=== PATIENT | male | born 1955 ===

== ENCOUNTER 2016-08-23 20:19 | Emergency (ER) | payer MEDICAID ==
[2016-08-23 20:27] VITALS: BP 151/95; PULSE 120; RESP 16; TEMP 98.5; O2SAT 100
[2016-08-23] MEDS ORDERED: Iohexol 240 (50 ml) PO ONE (20:29)
[2016-08-23] MEDS ORDERED: Iohexol 240 (50 ml) ONE (20:40)
[2016-08-23 21:27] LABS: BASO # 0.1 K/uL (0.0-0.2); BASO % 0.9 % (0.0-2.0); EOS % 0.5 % (0.0-4.0); HEMATOCRIT 42.9 % (35.0-51.0); LYMPH # 1.2 K/uL (1.0-4.3); LYMPH % 17.9 % (20.0-40.0); MEAN CELL VOLUME 91.5 fl (80.0-94.0); MEAN CORPUSCULAR HEMOGLOBIN 30.4 pg (27.0-31.0); MEAN CORPUSCULAR HGB CONC 33.2 g/dL (33.0-37.0); MEAN PLATELET VOLUME 6.4 fl (7.2-11.7); MONO # 0.8 K/uL (0.0-0.8); MONO % 11.8 % (0.0-10.0); NEUT # 4.8 K/uL (1.8-7.0); NEUT % 68.9 % (50.0-75.0); NRBC % 0.1 % (0.0-0.0); WHITE BLOOD COUNT 6.9 K/uL (4.8-10.8)
[2016-08-23 21:54] LABS: ALB/GLOB RATIO 1.4 (1.0-2.1); ALKALINE PHOSPHATASE 77 U/L (38-126); ALT/SGPT 48 U/L (21-72); AST/SGOT 39 U/L (17-59); BILIRUBIN,TOTAL 0.4 mg/dl (0.2-1.3); BLOOD UREA NITROGEN 16 mg/dl (9-20); CALCIUM 9.2 mg/dL (8.4-10.2); CARBON DIOXIDE 24 mmol/L (22-30); CHLORIDE 100 mmol/L (98-107); GFR AFRICAN-AMERICAN > 60; GLUCOSE,RANDOM 109 mg/dL (75-110); SODIUM 135 mmol/l (132-148); TOTAL PROTEIN 7.3 G/DL (6.3-8.2)
--- NOTE | 2016-08-23 22:16 | ED PDOC ---
"HPI: Abdomen Time Seen by Provider: 08/23/16 20:28 Chief Complaint (Nursing): Abdominal Pain Chief Complaint (Provider): Abdominal Pain History Per: Patient History/Exam Limitations: no limitations Onset/Duration Of Symptoms: Days (2x) Current Symptoms Are (Timing): Still Present Severity: Moderate Associated Symptoms: Back Pain (left side), Urinary Symptoms (decreased urine output). denies: Fever, Nausea, Vomiting, Diarrhea Additional Complaint(s): 60 year old male with no pertinent medical history presents to the ED with complaints of abdominal pain that started 2x days ago, accompanied by left sided back pain, and decreased ability to pass urine. She denies having nausea, vomiting, diarrhea, fever, cough, and shortness of breath. PMD: Marco Wing MD Past Medical History Reviewed: Historical Data, Nursing Documentation, Vital Signs Vital Signs: Last Vital Signs Temp 98.5 F 08/23/16 20:23 Pulse 120 H 08/23/16 20:23 Resp 16 08/23/16 20:23 BP 151/95 H 08/23/16 20:23 Pulse Ox 100 08/24/16 05:03 - Medical History PMH: No Chronic Diseases Other PMH: questionable prostate disease - Surgical History Surgical History: No Surg Hx - Family History Family History: States: Unknown Family Hx - Social History Current smoker - smoking cessation education provided: No Alcohol: None Drugs: Denies - Home Medications Home Medications: Ambulatory Orders Medication Instructions Recorded Polyethylene Glycol 3350 [Miralax] 17 g PO QAM PRN #7 pkg 08/24/16 - Allergies Allergies/Adverse Reactions: Allergies Allergy/AdvReac Type Severity Reaction Status Date / Time No Known Allergies Allergy Verified 08/23/16 20:22 Review of Systems ROS Statement: Except As Marked, All Systems Reviewed And Found Negative Constitutional: Negative for: Fever Cardiovascular: Negative for: Chest Pain Respiratory: Negative for: Cough, Shortness of Breath Gastrointestinal: Positive for: Abdominal Pain. Negative for: Nausea, Vomiting , Diarrhea Genitourinary Male: Positive for: Other (decreased ability to pass urine) Musculoskeletal: Positive for: Back Pain (left side) Physical Exam - Reviewed Nursing Documentation Reviewed: Yes Vital Signs Reviewed: Yes - Physical Exam Appears: Positive for: Non-toxic, Uncomfortable Head Exam: Positive for: ATRAUMATIC, NORMOCEPHALIC Skin: Positive for: Normal Color, Warm, Dry Neck: Positive for: Normal Cardiovascular/Chest: Positive for: Tachycardia (regular rhythm) Respiratory: Positive for: Normal Breath Sounds. Negative for: Respiratory Distress Gastrointestinal/Abdominal: Positive for: Tenderness (suprapubic tenderness), Distended Neurologic/Psych: Positive for: Alert, Oriented (3x) - Laboratory Results Result Diagrams: 08/23/16 21:22 08/23/16 21:22 - ECG O2 Sat by Pulse Oximetry: 100 (RA) Pulse Ox Interpretation: Normal Medical Decision Making Medical Decision Makin:28 Initial impression: 60 year old male with urinary symptoms and left flank pain. Initial plan: * CT abd and pelvis PO and IV contrast * CMP * lactic acid, plasma * omnipaque 50ml PO * toradol 10mg IV * blood culture * urine culture * bladder scan PRN * urinalysis * reevaluation 0308: EXAM: CT Abdomen and Pelvis With Intravenous Contrast CLINICAL HISTORY: 60 years old, male; Pain; Abdominal pain; Generalized; Additional info: Abd pain. Unable to urinate. Sent phy. Doc. With request. TECHNIQUE: Axial computed tomography images of the abdomen and pelvis with intravenous contrast. This CT exam was performed using one or more of the following dose reduction techniques : automated exposure control, adjustment of the mA and/or kV according to patient size, and/ or use of iterative reconstruction technique. Coronal and sagittal reformatted images were created and reviewed. CONTRAST: 90 mL of [id number] administered intravenously. COMPARISON: No relevant prior studies available. FINDINGS: Lower thorax: The bilateral lung bases are clear. ABDOMEN: Liver: No acute findings. Gallbladder and bile ducts: The gallbladder is decompressed. No calcified stones. No significant intra- or extrahepatic biliary ductal dilation. Pancreas: Enhances homogeneously. No ductal dilation. No discrete mass. Spleen: No acute findings. Adrenals: No acute findings. Kidneys and ureters: No acute findings. No hydronephrosis or renal calculi. No discrete solid mass. PELVIS: Bladder: The bladder is markedly distended, and demonstrates a thickened wall Reproductive: No acute findings. Appendix: The air filled appendix is of normal caliber (series 3, image 98; series 601, image 58). ABDOMEN and PELVIS: RONI EMMANUEL | Final Radiology Report CONFIDENTIALITY STATEMENT This report is intended only for use by the referring physician, and only in accordance with law. If you received this in error, call [phone]. Page 2 of 2 Stomach and bowel: Oral contrast extends to the level of the cecum and ascending colon without evidence of obstruction. No mucosal thickening. Extensive retained fecal enteric contents within the left mid to lower abdomen. Peritoneum: No significant fluid collection. No free air. Lymph nodes: No pathologically enlarged lymph nodes. Vasculature: Calcified atherosclerotic disease. Bones: S-shaped curvature of the thoracolumbar spine. IMPRESSION: Marked distention of the bladder, with mural thickening. Extensive retained fecal enteric contents within the left mid to lower abdomen. Labs showed no clinical significant abnormalities. Patient reports he is voiding normally now and is stable on dischage DX . Constipation, and acute urine syndrome. Scribe Attestation: Documented by Helena Goldman, acting as a scribe for Quique Knapp MD. Provider Scribe Attestation: All medical record entries made by the Scribe were at my direction and personally dictated by me. I have reviewed the chart and agree that the record accurately reflects my personal performance of the history, physical exam, medical decision making, and the department course for this patient. I have also personally directed, reviewed, and agree with the discharge instructions and disposition. Disposition - Clinical Impression Clinical Impression: Constipation, Urinary retention - Disposition Referrals: Dionisio Wade MD [Medical Doctor] - Marco Wing [Family Provider] - Disposition: Routine/Home Disposition Time: 03:00 Condition: IMPROVED Prescriptions: Polyethylene Glycol 3350 [Miralax] 17 g PO QAM PRN #7 pkg PRN Reason: Constipation Instructions: Constipation (ED), Urinary Retention in Men (ED) Print Language: NIGERIEN"
[2016-08-24] MEDS ORDERED: Iohexol 300 100 ML IJ ONE (00:09)
[2016-08-24] MEDS ORDERED: Sodium Chloride 0.9% 50 ML IV ONE (00:09)
[2016-08-24 05:38] LABS: RBC URINE 1 /hpf (0-3); URINE BILIRUBIN NEGATIVE (NEGATIVE); URINE BLOOD NEGATIVE (NEGATIVE); URINE COLOR STRAW (YELLOW); URINE GLUCOSE (UA) NEG (Normal); URINE KETONE NEGATIVE (NEGATIVE); URINE LEUKOCYTE ESTERASE NEG Leu/uL (Negative); URINE PROTEIN NEGATIVE (NEGATIVE); URINE UROBILINOGEN 0.2-1.0 mg/dL (0.2-1.0); WBC URINE < 1 /hpf (0-5)
--- NOTE | 2016-08-24 08:16 | CT ---
EXAM: CT Abdomen and Pelvis With Intravenous Contrast CLINICAL HISTORY: 60 years old, male; Pain; Abdominal pain; Generalized; Additional info: Abd pain. Unable to urinate. Sent phy. Doc. With request. TECHNIQUE: Axial computed tomography images of the abdomen and pelvis with intravenous contrast. This CT exam was performed using one or more of the following dose reduction techniques: automated exposure control, adjustment of the mA and/or kV according to patient size, and/or use of iterative reconstruction technique. Coronal and sagittal reformatted images were created and reviewed. CONTRAST: 90 mL of [id number] administered intravenously. COMPARISON: No relevant prior studies available. FINDINGS: Lower thorax: The bilateral lung bases are clear. ABDOMEN: Liver: No acute findings. Gallbladder and bile ducts: The gallbladder is decompressed. No calcified stones. No significant intra- or extrahepatic biliary ductal dilation. Pancreas: Enhances homogeneously. No ductal dilation. No discrete mass. Spleen: No acute findings. Adrenals: No acute findings. Kidneys and ureters: No acute findings. No hydronephrosis or renal calculi. No discrete solid mass. PELVIS: Bladder: The bladder is markedly distended, and demonstrates a thickened wall Reproductive: No acute findings. Appendix: The air filled appendix is of normal caliber (series 3, image 98; series 601, image 58). ABDOMEN and PELVIS: Stomach and bowel: Oral contrast extends to the level of the cecum and ascending colon without evidence of obstruction. No mucosal thickening. Extensive retained fecal enteric contents within the left mid to lower abdomen. Peritoneum: No significant fluid collection. No free air. Lymph nodes: No pathologically enlarged lymph nodes. Vasculature: Calcified atherosclerotic disease. Bones: S-shaped curvature of the thoracolumbar spine. IMPRESSION: Marked distention of the bladder, with mural thickening. Extensive retained fecal enteric contents within the left mid to lower abdomen.
== END 2016-08-24 05:33 | disposition home or self-care (01) ==
LOC: H.ER 20:19
DX: K59.00 Constipation, unspecified (principal); R33.9 Retention of urine, unspecified

== ENCOUNTER 2016-09-03 19:48 | Emergency (ER) | payer MEDICAID ==
[2016-09-03 19:59] VITALS: BP 151/88; PULSE 100; RESP 18; TEMP 98.1; O2SAT 99
--- NOTE | 2016-09-03 21:00 | ED PDOC ---
HPI: Male Pain Time Seen by Provider: 09/03/16 20:19 Chief Complaint (Nursing): Male Genitourinary Chief Complaint (Provider): difficulty urinating History Per: Patient History/Exam Limitations: no limitations Onset/Duration Of Symptoms: Days (3 months), Waxing/Waning Quality Of Discomfort: "Pain" Additional History Per: Patient Additional Complaint(s): 60 y/o male presents for eval of difficulty urinating x 3 months. Patient states he has BPH and has been put on Flomax. Associated suprapubic pain, abdominal bloating. Patient seen in ED twice 10 days ago for same, refused rose catheter. Denies fever, nausea/vomiting, chest pain, shortness of breath, dysuria, hematuria, changes in bowel movements. Past Medical History Reviewed: Historical Data, Nursing Documentation, Vital Signs Vital Signs: Last Vital Signs Temp 98.1 F 09/03/16 19:52 Pulse 100 H 09/03/16 19:52 Resp 18 09/03/16 19:52 BP 151/88 H 09/03/16 19:52 Pulse Ox 99 09/03/16 19:52 - Medical History PMH: Benign Prostatic Hyperplasia - Surgical History Other surgeries: hemorrhoidectomy - Family History Family History: States: Unknown Family Hx - Home Medications Home Medications: Ambulatory Orders Medication Instructions Recorded Polyethylene Glycol 3350 [Miralax] 17 g PO QAM PRN #7 pkg 08/24/16 - Allergies Allergies/Adverse Reactions: Allergies Allergy/AdvReac Type Severity Reaction Status Date / Time No Known Allergies Allergy Verified 08/23/16 20:22 Review of Systems ROS Statement: Except As Marked, All Systems Reviewed And Found Negative Genitourinary Male: Positive for: Frequency Physical Exam - Reviewed Nursing Documentation Reviewed: Yes Vital Signs Reviewed: Yes - Physical Exam Appears: Positive for: Well, Non-toxic, No Acute Distress Head Exam: Positive for: ATRAUMATIC, NORMAL INSPECTION, NORMOCEPHALIC Skin: Positive for: Normal Color Eye Exam: Positive for: Normal appearance Cardiovascular/Chest: Positive for: Regular Rate, Rhythm Respiratory: Positive for: Normal Breath Sounds Gastrointestinal/Abdominal: Positive for: Bowel Sounds, Soft, Tenderness ( suprapubic) Extremity: Positive for: Normal ROM Neurologic/Psych: Positive for: Alert, Oriented - ECG O2 Sat by Pulse Oximetry: 99 - Progress ED Course And Treament: labs and CT reviewed from 08/24 visit; showed constipation and bladder distension , otherwise no acute findings. Patient urinated without difficulty in ED. Patient educated on findings, stressed importance of urology follow up. Continue current medications. Advised high fiber diet. Return to ED for worsening/concerning symptoms. Disposition - Clinical Impression Clinical Impression: Urinary retention - Patient ED Disposition Is Patient to be Admitted: No Counseled Patient/Family Regarding: Studies Performed, Diagnosis, Need For Followup - Disposition Referrals: Neeraj De La Fuente Jr., MD [Staff Provider] - Disposition: Routine/Home Disposition Time: 21:44 Condition: STABLE Instructions: Urinary Retention in Men (ED) Print Language: MAORI
[2016-09-03 21:57] LABS: RBC URINE 6 /hpf (0-3); URINE BILIRUBIN NEGATIVE (NEGATIVE); URINE BLOOD NEGATIVE (NEGATIVE); URINE COLOR YELLOW (YELLOW); URINE GLUCOSE (UA) NEG (Normal); URINE KETONE NEGATIVE (NEGATIVE); URINE LEUKOCYTE ESTERASE NEG Leu/uL (Negative); URINE PROTEIN NEGATIVE (NEGATIVE); URINE UROBILINOGEN 0.2-1.0 mg/dL (0.2-1.0); WBC URINE 15 /hpf (0-5)
== END 2016-09-03 21:54 | disposition home or self-care (01) ==
LOC: H.ER 19:48
DX: N40.0 Benign prostatic hyperplasia without lower urinary tract symptoms (principal); R33.9 Retention of urine, unspecified

== ENCOUNTER 2016-09-14 22:15 | Inpatient (IN) | payer MEDICAID ==
[2016-09-14 22:15] VITALS: BMI 44.9
[2016-09-14] MEDS ORDERED: Iohexol 240 (50 ml) PO ONE (23:12)
[2016-09-14 23:21] LABS: BASO % 0.5 % (0.0-2.0); EOS % 0.2 % (0.0-4.0); HEMATOCRIT 40.4 % (35.0-51.0); LYMPH # 1.4 K/uL (1.0-4.3); LYMPH % 17.9 % (20.0-40.0); MEAN CORPUSCULAR HEMOGLOBIN 30.3 pg (27.0-31.0); MEAN CORPUSCULAR HGB CONC 33.7 g/dL (33.0-37.0); MEAN PLATELET VOLUME 6.4 fl (7.2-11.7); MONO # 0.6 K/uL (0.0-0.8); MONO % 7.7 % (0.0-10.0); NEUT % 73.7 % (50.0-75.0); RED CELL DISTRIBUTION WIDTH 13.1 % (11.5-14.5); WHITE BLOOD COUNT 8.1 K/uL (4.8-10.8)
--- NOTE | 2016-09-14 23:28 | ED PDOC ---
HPI: Male Pain Time Seen by Provider: 09/14/16 22:53 Chief Complaint (Nursing): Male Genitourinary Chief Complaint (Provider): difficulty urinating, flank pain History Per: Patient History/Exam Limitations: no limitations Onset/Duration Of Symptoms: Days (2) Current Symptoms Are (Timing): Still Present Additional Complaint(s): 60yo male with PMHx including BPH, rectal adenocarcinoma presents to the ED with c/o urinary difficulty and flank pain worse on the left x 2 days. Patient has had 3 recent ED visits describing urinary retention however all workups have been negative and bladder residuals have also been WNL. Today, patient reports discomfort has become increasingly worse with flank pain worse on the left than right. Pain is 8/10 and sharp. Denies n/v/d, fever, cough, chest pain. Past Medical History Reviewed: Historical Data, Nursing Documentation, Vital Signs Vital Signs: Last Vital Signs Temp 98.6 F 09/14/16 22:21 Pulse 119 H 09/14/16 22:21 Resp 17 09/14/16 22:21 BP 136/91 H 09/14/16 22:21 Pulse Ox 97 09/14/16 22:21 - Medical History PMH: Benign Prostatic Hyperplasia Other PMH: rectal adenocarcinoma - Surgical History Surgical History: No Surg Hx - Family History Family History: States: No Known Family Hx - Social History Current smoker - smoking cessation education provided: No Alcohol: None Drugs: Denies - Home Medications Home Medications: Ambulatory Orders Medication Instructions Recorded Tamsulosin [Flomax] 0.4 mg PO BID #60 cap 09/08/16 - Allergies Allergies/Adverse Reactions: Allergies Allergy/AdvReac Type Severity Reaction Status Date / Time No Known Allergies Allergy Verified 09/08/16 18:08 Review of Systems ROS Statement: Except As Marked, All Systems Reviewed And Found Negative Constitutional: Negative for: Fever Cardiovascular: Negative for: Chest Pain Respiratory: Negative for: Cough Gastrointestinal: Negative for: Nausea, Vomiting, Diarrhea Genitourinary Male: Positive for: Other (urinary difficulty ) Musculoskeletal: Positive for: Back Pain (flank pain worse on left ) Physical Exam - Reviewed Nursing Documentation Reviewed: Yes Vital Signs Reviewed: Yes - Physical Exam Appears: Positive for: Well, No Acute Distress, Uncomfortable Head Exam: Positive for: ATRAUMATIC, NORMAL INSPECTION, NORMOCEPHALIC Skin: Positive for: Normal Color, Warm, Dry Eye Exam: Positive for: Normal appearance, EOMI, PERRL ENT: Positive for: Normal ENT Inspection Neck: Positive for: Normal, Painless ROM, Supple Cardiovascular/Chest: Positive for: Regular Rate, Rhythm. Negative for: Murmur , Tachycardia Respiratory: Positive for: Normal Breath Sounds. Negative for: Wheezing, Respiratory Distress Gastrointestinal/Abdominal: Positive for: Normal Exam, Soft. Negative for: Tenderness Back: Positive for: Normal Inspection. Negative for: L CVA Tenderness, R CVA Tenderness Extremity: Positive for: Normal ROM. Negative for: Deformity, Swelling Neurologic/Psych: Positive for: Alert, Oriented. Negative for: Motor/Sensory Deficits - Laboratory Results Result Diagrams: 09/14/16 23:07 09/14/16 23:07 - ECG O2 Sat by Pulse Oximetry: 97 Pulse Ox Interpretation: Normal (RA) Medical Decision Making Medical Decision Makin: Impression: 60yo male w/ flank pain in setting of urinary symptoms and multiple recent ED visits for same Plan: CT A/P Labs Toradol 10mg IV, IVF reassess 0202: CT A/P impression: 1. Diverticulosis without definite CT evidence of diverticulitis. 2. Mild bladder wall thickening. Clinical correlation is needed. 0250: Labs reviewed, no clinically significant abnormalities with exception of urine possibly indicative of UTI. Given patient's multiple visits in the past 2 weeks for recurrent urinary issues and CT consistently showing bladder wall thickening, patient will be admitted for further workup and treatment of possible underlying bladder mass and pyelonephritis. Case discussed with Dr. Walker for admission. Scribe Attestation: Documented by Sarah Epps acting as a scribe for Quique Knapp MD. Provider Scribe Attestation: All medical record entries made by the Scribe were at my direction and personally dictated by me. I have reviewed the chart and agree that the record accurately reflects my personal performance of the history, physical exam, medical decision making, and the department course for this patient. I have also personally directed, reviewed, and agree with the discharge instructions and disposition. Disposition - Clinical Impression Clinical Impression: Pyelonephritis - Patient ED Disposition Is Patient to be Admitted: Yes Discussed With : Lili Walker - Disposition Disposition Time: 02:50 Condition: FAIR
[2016-09-14 23:31] LABS: ALB/GLOB RATIO 1.4 (1.0-2.1); ALKALINE PHOSPHATASE 61 U/L (38-126); ALT/SGPT 34 U/L (21-72); AST/SGOT 25 U/L (17-59); BILIRUBIN,TOTAL 0.5 mg/dl (0.2-1.3); BLOOD UREA NITROGEN 22 mg/dl (9-20); CALCIUM 9.3 mg/dL (8.4-10.2); CARBON DIOXIDE 28 mmol/L (22-30); CHLORIDE 102 mmol/L (98-107); GFR AFRICAN-AMERICAN > 60; GLUCOSE,RANDOM 96 mg/dL (75-110); POTASSIUM 3.7 MMOL/L (3.6-5.0); SODIUM 139 mmol/l (132-148); TOTAL PROTEIN 6.6 G/DL (6.3-8.2)
[2016-09-15 01:02] LABS: WBC URINE 3 /hpf (0-5)
[2016-09-15] MEDS ORDERED: Iohexol 300 100 ML IJ ONE (01:11)
[2016-09-15] MEDS ORDERED: Sodium Chloride 0.9% 50 ML IV ONE (01:11)
[2016-09-15 01:14] LABS: URINE BILIRUBIN NEGATIVE (NEGATIVE); URINE BLOOD NEGATIVE (NEGATIVE); URINE COLOR YELLOW (YELLOW); URINE GLUCOSE (UA) NEGATIVE (Normal); URINE KETONE NEGATIVE (NEGATIVE)
[2016-09-15 01:15] LABS: URINE LEUKOCYTE ESTERASE NEGATIVE Leu/uL (Negative); URINE PROTEIN 30 mg/dL (NEGATIVE)
[2016-09-15 01:16] LABS: RBC URINE 4 /hpf (0-3)
[2016-09-15 01:17] LABS: URINE BACTERIA MOD (<OCC)
[2016-09-15] MEDS ORDERED: cefTRIAXone (Rocephin) 1 gm Inj ONE (01:32)
--- NOTE | 2016-09-15 02:03 | CT ---
EXAM: CT Abdomen and Pelvis With Intravenous Contrast CLINICAL HISTORY: 60 years old, male; Pain; Abdominal pain; Generalized; Additional info: Abd pain/flank pain TECHNIQUE: Axial computed tomography images of the abdomen and pelvis with intravenous contrast. This CT exam was performed using one or more of the following dose reduction techniques: automated exposure control, adjustment of the mA and/or kV according to patient size, and/or use of iterative reconstruction technique. Coronal and sagittal reformatted images were created and reviewed. CONTRAST: 95 mL of OMNI administered intravenously. COMPARISON: CT - ABD PELVIS PO IV CONTRAST 08/24/2016 12:27:03 AM FINDINGS: Limitations: Motion artifact - mild. Lower thorax: Paraseptal emphysematous changes. ABDOMEN: Liver: Too small to characterize lesion. Gallbladder and bile ducts: No calcified stones. No ductal dilation. Pancreas: No ductal dilation. No mass. Spleen: No splenomegaly. Adrenals: No mass. Kidneys and ureters: No mass. No hydronephrosis. Stomach and bowel: Few diverticula within sigmoid colon. No associated inflammatory stranding. No definite mural thickening. No obstruction. Appendix: Partially visualized. Normal caliber. No definite inflammation. PELVIS: Bladder: Mild posterior bladder wall thickening. Reproductive: Unremarkable as visualized. ABDOMEN and PELVIS: Intraperitoneal space: No significant fluid collection. No free air. Bones/joints: Scoliosis. No acute fracture. Soft tissues: Unremarkable. Vasculature: Mild atherosclerotic disease. No abdominal aortic aneurysm. Lymph nodes: No pathologically enlarged lymph nodes. IMPRESSION: 1. Diverticulosis without definite CT evidence of diverticulitis. 2. Mild bladder wall thickening. Clinical correlation is needed. 3. Incidental/non-acute findings are described above.
[2016-09-15] MEDS ORDERED: Oxycodone/Acetaminophen 5/325 mg Tab PO PRN (02:38)
[2016-09-15] MEDS ORDERED: Sodium Chloride 0.9% 1,000 ML IV SCH (02:45)
--- NOTE | 2016-09-15 03:07 | CP.PCM.HP ---
History of Present Illness - History of Present Illness History of Present Illness: CC: Dysuria HPI: This is a 60 y/o male with MHx sig for BPH and a recent diagnosis of ? rectal adenocarcinoma who comes in with dysuria and L sided flank pain. Patient apparently was diagnosed with an adeno as above in June at [facility] and received some type of chemotherapy, but does not appear to have completed. Apparently now he has visited the ER multiple times with dysuria and c/o a sense of urinary retention. Also worsening flank pain. No f/c. No n/v/d. No fevers. ROS: 14 systems reviewed, negative other than HPI MHx: BPH, ?rectal adenocarcinoma SHx: Rectal Bx Allergies: NKDA Medications: As per med rec Family Hx: None that patient can provide Social Hx: Unclear living conditions, no significant current tobacco or EtOH Present on Admission - Present on Admission Any Indicators Present on Admission: No Past Patient History - Past Social History Alcohol: None Drugs: Denies - HEMATOLOGICAL/ONCOLOGICAL Hx Cancer: Yes - PSYCHIATRIC Hx Substance Use: No - SURGICAL HISTORY Hx Surgeries: Yes Hx Herniorrhaphy: Yes - ANESTHESIA Hx Anesthesia: Yes Hx Anesthesia Reactions: No Meds Allergies/Adverse Reactions: Allergies Allergy/AdvReac Type Severity Reaction Status Date / Time No Known Allergies Allergy Verified 09/08/16 18:08 Physical Exam - Constitutional Appears: Cachectic - Head Exam Head Exam: ATRAUMATIC, NORMOCEPHALIC - Eye Exam Eye Exam: EOMI, PERRL - ENT Exam ENT Exam: Mucous Membranes Moist - Neck Exam Neck exam: Positive for: Full Rom - Respiratory Exam Respiratory Exam: Clear to Auscultation Bilateral, NORMAL BREATHING PATTERN - Cardiovascular Exam Cardiovascular Exam: REGULAR RHYTHM, +S1, +S2 - GI/Abdominal Exam GI & Abdominal Exam: Normal Bowel Sounds, Soft, Tenderness - Extremities Exam Extremities exam: Positive for: full ROM, normal inspection - Neurological Exam Neurological exam: Alert, CN II-XII Intact, Oriented x3 - Psychiatric Exam Psychiatric exam: Flat Affect, Normal Mood - Skin Skin Exam: Dry, Warm Results - Vital Signs Recent Vital Signs: Last Vital Signs Temp 98.6 F 09/15/16 02:22 Pulse 119 H 09/15/16 02:22 Resp 17 09/15/16 02:22 BP 136/91 H 09/15/16 02:22 Pulse Ox 97 09/15/16 02:59 - Labs Result Diagrams: 09/14/16 23:07 09/14/16 23:07 - Imaging and Cardiology CT scan - abdomen Status: Report reviewed by me (bladder thickening) Assessment & Plan (1) Bladder wall thickening Assessment and Plan: 60 y/o with recent diagnosis of unclear bowel cancer for which he received some chemotherapy who comes in with recurrent urinary symptoms/dysuria + UTI. -Continue IV Ceftriaxone -Pain mgmt -Consult with Urology for possibly cystoscopy given urinary symptoms + ? cancer diagnosis -May need to get heme/onc consult -SQ Lovenox Status: Acute (2) Bowel cancer Status: Acute (3) Pyelonephritis Status: Acute (4) DVT prophylaxis Status: Acute
[2016-09-15 08:05] LABS: HEMATOCRIT 40.9 % (35.0-51.0); MEAN CELL VOLUME 91.1 fl (80.0-94.0); MEAN CORPUSCULAR HGB CONC 32.9 g/dL (33.0-37.0); RED CELL DISTRIBUTION WIDTH 13.5 % (11.5-14.5); WHITE BLOOD COUNT 6.4 K/uL (4.8-10.8)
[2016-09-15 08:22] LABS: BLOOD UREA NITROGEN 18 mg/dl (9-20); CALCIUM 8.9 mg/dL (8.4-10.2); CARBON DIOXIDE 30 mmol/L (22-30); CHLORIDE 101 mmol/L (98-107); GFR AFRICAN-AMERICAN > 60; GLUCOSE,RANDOM 85 mg/dL (75-110); POTASSIUM 3.6 MMOL/L (3.6-5.0); SODIUM 137 mmol/l (132-148)
[2016-09-15] MEDS: Enoxaparin 40 mg Syringe SC SCH (09:19)
--- NOTE | 2016-09-15 20:18 | CP.PCM.CON ---
History of Present Illness - History of Present Illness History of Present Illness: urology Pt seen for c/o difficulty voiding. He has visited ER multiple times for same reason but no retention found. Pt complains of this problem coincidentally at this same kailyn period he was operated on for rectal adenocarcinoma. Prior to this surgery he was voiding well. CT done shows no sig findings. Clinically UA shows increased WBC ON rectal prostate +1 rather firm non nodular. Bladder scans showed about 160 cc afterwhich he voids at least 100 cc. Abdomen not distended. He is on flomax bid I will also add finasteride 5 mg daily. He also suffers of constipation which could contribute to the feeling of difficulty voiding. For now conservative management Past Patient History - Past Medical History & Family History Past Medical History?: Yes - Past Social History Alcohol: None Drugs: Denies - CARDIAC Hx Hypertension: Yes - PULMONARY Hx Respiratory Disorders: Yes Hx Asthma: Yes - NEUROLOGICAL Other/Comment: poor historian vs forgetfulness - HEENT Hx HEENT Problems: No - RENAL Hx Pyelonephritis: Yes - ENDOCRINE/METABOLIC Hx Endocrine Disorders: No - HEMATOLOGICAL/ONCOLOGICAL Hx Blood Disorders: No Hx AIDS: No Hx Human Immunodeficiency Virus (HIV): No - INTEGUMENTARY Hx Dermatological Problems: Yes Other/Comment: generalized skin lessions - MUSCULOSKELETAL/RHEUMATOLOGICAL Hx Musculoskeletal Disorders: No Hx Falls: No - GASTROINTESTINAL Hx Gastrointestinal Disorders: No - GENITOURINARY/GYNECOLOGICAL Hx Genitourinary Disorders: Yes Hx Prostate Problems: Yes (BPH) Other/Comment: rectal adencarcinoma - PSYCHIATRIC Hx Psychophysiologic Disorder: No Hx Substance Use: No - SURGICAL HISTORY Hx Surgeries: Yes Hx Herniorrhaphy: Yes - ANESTHESIA Hx Anesthesia: Yes Hx Anesthesia Reactions: No Meds Allergies/Adverse Reactions: Allergies Allergy/AdvReac Type Severity Reaction Status Date / Time No Known Allergies Allergy Verified 09/08/16 18:08 - Medications Medications: Current Medications Acetaminophen (Tylenol 325mg Tab) 650 mg PO Q6 PRN PRN Reason: Pain, Mild (1-3) Acetaminophen (Tylenol 325mg Tab) 650 mg PO Q6 PRN PRN Reason: Fever >100.4 F Docusate Sodium (Colace) 200 mg PO DAILY [facility] Last Admin: 09/15/16 11:32 Dose: 200 mg Enoxaparin Sodium (Lovenox) 40 mg SC DAILY [facility] PRN Reason: Protocol Last Admin: 09/15/16 09:19 Dose: 40 mg Finasteride (Proscar) 5 mg PO DAILY [facility] Ceftriaxone Sodium 1 gm/ (Sodium Chloride) 100 mls @ 100 mls/hr IVPB DAILY [facility] Last Admin: 09/15/16 09:18 Dose: 100 mls/hr Ondansetron HCl (Zofran Inj) 4 mg IVP Q6 PRN PRN Reason: Nausea/Vomiting Oxycodone/Acetaminophen (Percocet 5/325 Mg Tab) 1 tab PO Q4 PRN PRN Reason: Pain, moderate (4-7) Stop: 09/18/16 02:39 Phenazopyridine HCl (Pyridium) 100 mg PO TID [facility] Last Admin: 09/15/16 16:31 Dose: 100 mg Polyethylene Glycol (Miralax) 17 gm PO DAILY [facility] Tamsulosin HCl (Flomax) 0.4 mg PO BID [facility] Last Admin: 09/15/16 16:31 Dose: 0.4 mg Results - Vital Signs Recent Vital Signs: Last Vital Signs Temp 98.2 F 09/15/16 16:00 Pulse 82 09/15/16 16:00 Resp 20 09/15/16 16:00 BP 144/84 09/15/16 16:00 Pulse Ox 99 09/15/16 16:00 - Labs Result Diagrams: 09/15/16 06:00 09/15/16 06:00 Labs: Laboratory Results - last 24 hr 09/15/16 09/15/16 06:00 06:00 WBC 6.4 RBC 4.49 Hgb 13.4 Hct 40.9 MCV 91.1 MCH 30.0 MCHC 32.9 L RDW 13.5 Plt Count 198 Sodium 137 Potassium 3.6 Chloride 101 Carbon Dioxide 30 Anion Gap 9 L BUN 18 Creatinine 0.6 L Est GFR ( Amer) > 60 Est GFR (Non-Af Amer) > 60 Random Glucose 85 Calcium 8.9
[2016-09-16] MEDS: Enoxaparin 40 mg Syringe SC SCH (09:05)
[2016-09-16] MEDS: POLYETHYLENE GLYCOL 3350 17 GM/Dose PACKET PO SCH (09:06)
--- NOTE | 2016-09-16 13:52 | CP.PCM.PN ---
Subjective - Date & Time of Evaluation Date of Evaluation: 09/16/16 Time of Evaluation: 11:30 - Subjective Subjective: No fever still complains of being unable to void but accdg to RN , pt has been voiding about 150-200ml each time and on bladder scan , noted about 120-150 residual denies CP no SOB no abd pain + constipation however able to have BM last night after laxative poor PO intake Objective - Vital Signs/Intake and Output Vital Signs (last 24 hours): Temp Pulse Resp BP Pulse Ox 98.1 F 89 20 130/89 97 09/16/16 07:18 09/16/16 07:18 09/16/16 07:18 09/16/16 07:18 09/16/16 07:18 Intake and Output: 09/16/16 09/16/16 06:59 18:59 Output Total 250 Balance -250 - Medications Medications: Current Medications Acetaminophen (Tylenol 325mg Tab) 650 mg PO Q6 PRN PRN Reason: Pain, Mild (1-3) Acetaminophen (Tylenol 325mg Tab) 650 mg PO Q6 PRN PRN Reason: Fever >100.4 F Docusate Sodium (Colace) 200 mg PO DAILY [facility] Last Admin: 09/16/16 09:05 Dose: 200 mg Enoxaparin Sodium (Lovenox) 40 mg SC DAILY [facility] PRN Reason: Protocol Last Admin: 09/16/16 09:05 Dose: 40 mg Finasteride (Proscar) 5 mg PO DAILY [facility] Last Admin: 09/16/16 09:05 Dose: 5 mg Ceftriaxone Sodium 1 gm/ (Sodium Chloride) 100 mls @ 100 mls/hr IVPB DAILY [facility] Last Admin: 09/16/16 09:04 Dose: 100 mls/hr Ondansetron HCl (Zofran Inj) 4 mg IVP Q6 PRN PRN Reason: Nausea/Vomiting Oxycodone/Acetaminophen (Percocet 5/325 Mg Tab) 1 tab PO Q4 PRN PRN Reason: Pain, moderate (4-7) Stop: 09/18/16 02:39 Phenazopyridine HCl (Pyridium) 100 mg PO TID [facility] Last Admin: 09/16/16 12:33 Dose: 100 mg Polyethylene Glycol (Miralax) 17 gm PO DAILY [facility] Last Admin: 09/16/16 09:06 Dose: 17 gm Tamsulosin HCl (Flomax) 0.4 mg PO BID [facility] Last Admin: 09/16/16 09:05 Dose: 0.4 mg - Labs Labs: 09/15/16 06:00 09/15/16 06:00 - Constitutional Appears: No Acute Distress, Older Than Stated Age, Chronically Ill - Head Exam Head Exam: NORMAL INSPECTION, NORMOCEPHALIC - Eye Exam Eye Exam: EOMI, Normal appearance, PERRL Pupil Exam: NORMAL ACCOMODATION - ENT Exam ENT Exam: Mucous Membranes Moist, Normal External Ear Exam - Neck Exam Neck Exam: Full ROM. absent: Meningismus - Respiratory Exam Respiratory Exam: NORMAL BREATHING PATTERN. absent: Respiratory Distress Additional comments: Chest deformity due accident as a child - Cardiovascular Exam Cardiovascular Exam: REGULAR RHYTHM, +S1, +S2 - GI/Abdominal Exam GI & Abdominal Exam: Soft, Normal Bowel Sounds. absent: Tenderness - Extremities Exam Extremities Exam: Full ROM, Normal Capillary Refill. absent: Calf Tenderness, Pedal Edema - Back Exam Back Exam: Full ROM. absent: CVA tenderness (L), CVA tenderness (R) - Neurological Exam Neurological Exam: Alert, Awake, CN II-XII Intact, Oriented x3 Neuro motor strength exam: Left Upper Extremity: 5, Right Upper Extremity: 5, Left Lower Extremity: 5, Right Lower Extremity: 5 - Psychiatric Exam Psychiatric exam: Normal Affect, Normal Mood - Skin Skin Exam: Dry, Normal Color, Warm Assessment and Plan (1) Cystitis, radiation Status: Suspected (2) Incomplete bladder emptying Status: Acute (3) Constipation Status: Acute (4) Colon cancer Status: Chronic (5) Pyelonephritis Status: Ruled-out - Assessment and Plan (Free Text) Assessment: 60 y/o gent with hx of Colon CA s/p Chemotx and Radiotx, came in because of " inability to urinate " and constipation. Pt states that since he had surgery for " hemorrhoids" and was dx to have Colon CA and started on Radiotx , he noticed that urination has been difficult. He has had more than 10 ED visits due to this problem and this is frustating him. He stopped going for his Radiotx bec of the discomfort due to his urinaty problem. (1) Cystitis, radiation Status: Suspected unclear if pt sxs is related to his Radiotx, need to r/o Infection,prostate proble Started Pyridium cont IV Ceftriaxone cont Flomax and proscar Urology - dr Wade consulted (2) Incomplete bladder emptying prob sec to the Cystitis vs Prostatic Enlargement Status: Acute tx for any infection cont Flomax add low dose Bethanecol post void bladder scan = 130 (3) Constipation Status: Acute start Lactulose, Colace (4) Colon cancer Status: Chronic ff up with Oncology ebonie after d/c - his Onc is in [facility] (5) Pyelonephritis Status: Ruled-out Urinalysis no Leukoest nor WBC, culture negative so far DVT proph Lovenox
[2016-09-17 07:34] VITALS: RESP 20; O2SAT 98
[2016-09-17] MEDS: POLYETHYLENE GLYCOL 3350 17 GM/Dose PACKET PO SCH (08:29)
[2016-09-17] MEDS: Enoxaparin 40 mg Syringe SC SCH (08:30)
--- NOTE | 2016-09-17 11:15 | CP.PCM.DIS ---
Provider - Provider Date of Admission: 09/15/16 01:37 Attending physician: Lili Walker MD Time Spent in preparation of Discharge (in minutes): 30 Diagnosis - Discharge Diagnosis (1) Incomplete bladder emptying Status: Acute Hospital Course - Lab Results Lab Results: Micro Results 09/15/16 01:45 Blood-Venous Blood Culture - Preliminary NO GROWTH AFTER 48 HOURS Most Recent Lab Values WBC 6.4 K/uL (4.8-10.8) 09/15/16 06:00 RBC 4.49 Mil/uL (4.40-5.90) 09/15/16 06:00 Hgb 13.4 g/dL (12.0-18.0) 09/15/16 06:00 Hct 40.9 % (35.0-51.0) 09/15/16 06:00 MCV 91.1 fl (80.0-94.0) 09/15/16 06:00 MCH 30.0 pg (27.0-31.0) 09/15/16 06:00 MCHC 32.9 g/dL (33.0-37.0) L 09/15/16 06:00 RDW 13.5 % (11.5-14.5) 09/15/16 06:00 Plt Count 198 K/uL (130-400) 09/15/16 06:00 MPV 6.4 fl (7.2-11.7) L 09/14/16 23:07 Neut % (Auto) 73.7 % (50.0-75.0) 09/14/16 23:07 Lymph % (Auto) 17.9 % (20.0-40.0) L 09/14/16 23:07 Harney % (Auto) 7.7 % (0.0-10.0) 09/14/16 23:07 Eos % (Auto) 0.2 % (0.0-4.0) 09/14/16 23:07 Baso % (Auto) 0.5 % (0.0-2.0) 09/14/16 23:07 Neut # 6.0 K/uL (1.8-7.0) 09/14/16 23:07 Lymph # 1.4 K/uL (1.0-4.3) 09/14/16 23:07 Harney # 0.6 K/uL (0.0-0.8) 09/14/16 23:07 Eos # 0.0 K/uL (0.0-0.7) 09/14/16 23:07 Baso # 0.0 K/uL (0.0-0.2) 09/14/16 23:07 Sodium 137 mmol/l (132-148) 09/15/16 06:00 Potassium 3.6 MMOL/L (3.6-5.0) 09/15/16 06:00 Chloride 101 mmol/L (98-107) 09/15/16 06:00 Carbon Dioxide 30 mmol/L (22-30) 09/15/16 06:00 Anion Gap 9 (10-20) L 09/15/16 06:00 BUN 18 mg/dl (9-20) 09/15/16 06:00 Creatinine 0.6 mg/dL (0.8-1.5) L 09/15/16 06:00 Est GFR ( Amer) > 60 09/15/16 06:00 Est GFR (Non-Af Amer) > 60 09/15/16 06:00 Random Glucose 85 mg/dL (75-110) 09/15/16 06:00 Calcium 8.9 mg/dL (8.4-10.2) 09/15/16 06:00 Total Bilirubin 0.5 mg/dl (0.2-1.3) 09/14/16 23:07 AST 25 U/L (17-59) 09/14/16 23:07 ALT 34 U/L (21-72) 09/14/16 23:07 Alkaline Phosphatase 61 U/L (38-126) 09/14/16 23:07 Total Protein 6.6 G/DL (6.3-8.2) 09/14/16 23:07 Albumin 3.8 g/dL (3.5-5.0) 09/14/16 23:07 Globulin 2.8 gm/dL (2.2-3.9) 09/14/16 23:07 Albumin/Globulin Ratio 1.4 (1.0-2.1) 09/14/16 23:07 Urine Color Yellow (YELLOW) 09/15/16 00:10 Urine Clarity Turbid (Clear) 09/15/16 00:10 Urine pH 7.0 (5.0-8.0) 09/15/16 00:10 Ur Specific Hayward 1.015 (1.003-1.030) 09/15/16 00:10 Urine Protein 30 mg/dL (NEGATIVE) 09/15/16 00:10 Urine Glucose (UA) Negative mg/dL (Normal) 09/15/16 00:10 Urine Ketones Negative mg/dL (NEGATIVE) 09/15/16 00:10 Urine Blood Negative (NEGATIVE) 09/15/16 00:10 Urine Nitrate Positive (NEGATIVE) H 09/15/16 00:10 Urine Bilirubin Negative (NEGATIVE) 09/15/16 00:10 Urine Urobilinogen 1.0 mg/dL (0.2-1.0) 09/15/16 00:10 Ur Leukocyte Esterase Negative Silvano/uL (Negative) 09/15/16 00:10 Urine RBC (Auto) 4 /hpf (0-3) H 09/15/16 00:10 Urine Microscopic WBC 3 /hpf (0-5) 09/15/16 00:10 Amorphous Sediment Moderate /ul (<OCC) H 09/15/16 00:10 Urine Bacteria Mod (<OCC) H 09/15/16 00:10 - Hospital Course Hospital Course: 60 y/o gent with hx of Colon CA s/p Chemotx and Radiotx, came in because of " inability to urinate " and constipation. Pt states that since he had surgery for " hemorrhoids" and was dx to have Colon CA and started on Radiotx , he noticed that urination has been difficult. He has had more than 10 ED visits due to this problem and this is frustating him. He stopped going for his Radiotx bec of the discomfort due to his urinaty problem. (1) Cystitis, radiation Status: Suspected unclear if pt sxs is related to his Radiotx, need to r/o Infection,prostate proble Started Pyridium cont IV Ceftriaxone cont Flomax and proscar Urology - dr Wade consulted (2) Incomplete bladder emptying prob sec to the Cystitis vs Prostatic Enlargement Status: Acute tx for any infection cont Flomax add low dose Bethanecol post void bladder scan = 130 (3) Constipation Status: Acute start Lactulose, Colace (4) Colon cancer Status: Chronic ff up with Oncology ebonie after d/c - his Onc is in [facility] (5) Pyelonephritis Status: Ruled-out Urinalysis no Leukoest nor WBC, culture negative so far DVT proph Lovenox Discharge Exam - Head Exam Head Exam: NORMAL INSPECTION, NORMOCEPHALIC - Eye Exam Eye Exam: EOMI, Normal appearance, PERRL Pupil Exam: NORMAL ACCOMODATION - ENT Exam ENT Exam: Mucous Membranes Moist, Normal Oropharynx - Neck Exam Neck exam: Full Rom, Normal Inspection - Respiratory Exam Respiratory Exam: Clear to PA & Lateral, NORMAL BREATHING PATTERN - Cardiovascular Exam Cardiovascular Exam: RRR, +S1, +S2 - GI/Abdominal Exam GI & Abdominal Exam: Normal Bowel Sounds, Soft, Tenderness - Extremities Exam Extremities exam: normal capillary refill, pedal pulses present - Back Exam Back exam: absent: CVA tenderness (L), CVA tenderness (R) - Neurological Exam Neurological exam: Alert - Psychiatric Exam Psychiatric exam: Normal Affect, Normal Mood - Skin Skin Exam: Dry, Warm Discharge Plan - Discharge Medications Prescriptions: Bethanechol [Urecholine] 10 mg PO QID #120 tab Finasteride [Proscar] 5 mg PO DAILY #30 tab Phenazopyridine [Pyridium] 100 mg PO TID #90 tab - Follow Up Plan Condition: FAIR Disposition: HOME/ ROUTINE Instructions: Urinary Retention in Men (GEN) Additional Instructions: Follow-up with [facility] in 1 week - [phone]; pls call for appointment Prescription sent to patient's Pharmacy
[2016-09-17 16:20] VITALS: BP 135/87; PULSE 100; TEMP 98.4
== END 2016-09-17 16:00 | disposition home or self-care (01) | DRG 331 ==
LOC: H.ER 22:15 → H.ERHOLD 09-15 01:37 → H.MEDSURG1 09-15 03:44
PROVIDERS: ADMIT Internal Medicine; ATTEND Internal Medicine
DX: N30.40 Irradiation cystitis without hematuria (principal); N12 Tubulo-interstitial nephritis, not specified as acute or chronic; C20 Malignant neoplasm of rectum; I10 Essential (primary) hypertension; K59.00 Constipation, unspecified; K64.9 Unspecified hemorrhoids; J45.909 Unspecified asthma, uncomplicated; N40.1 Benign prostatic hyperplasia with lower urinary tract symptoms; R33.8 Other retention of urine

== ENCOUNTER 2016-09-19 19:29 | Emergency (ER) | payer MEDICAID ==
[2016-09-19 19:29] VITALS: BMI 44.9
[2016-09-19 19:32] VITALS: BP 139/103; PULSE 94; RESP 17; TEMP 98.1; O2SAT 97
[2016-09-19 20:47] LABS: BASO % 0.7 % (0.0-2.0); EOS % 0.8 % (0.0-4.0); HEMATOCRIT 41.9 % (35.0-51.0); LYMPH # 1.3 K/uL (1.0-4.3); LYMPH % 22.2 % (20.0-40.0); MEAN CELL VOLUME 90.6 fl (80.0-94.0); MEAN CORPUSCULAR HEMOGLOBIN 30.1 pg (27.0-31.0); MEAN CORPUSCULAR HGB CONC 33.3 g/dL (33.0-37.0); MEAN PLATELET VOLUME 6.3 fl (7.2-11.7); MONO # 0.7 K/uL (0.0-0.8); MONO % 12.7 % (0.0-10.0); NEUT # 3.7 K/uL (1.8-7.0); NEUT % 63.6 % (50.0-75.0); NRBC % 0.1 % (0.0-0.0); RED CELL DISTRIBUTION WIDTH 13.3 % (11.5-14.5); WHITE BLOOD COUNT 5.8 K/uL (4.8-10.8)
[2016-09-19 20:57] LABS: BLOOD UREA NITROGEN 22 mg/dl (9-20); CALCIUM 9.4 mg/dL (8.4-10.2); CARBON DIOXIDE 29 mmol/L (22-30); CHLORIDE 100 mmol/L (98-107); GFR AFRICAN-AMERICAN > 60; GLUCOSE,RANDOM 99 mg/dL (75-110); POTASSIUM 4.3 MMOL/L (3.6-5.0); SODIUM 139 mmol/l (132-148)
[2016-09-19] MEDS: Sodium Chloride 0.9% 1,000 ML IV STA (21:26)
[2016-09-19 22:40] LABS: RBC URINE 2 /hpf (0-3); URINE BACTERIA FEW (<OCC); URINE BILIRUBIN NEGATIVE (NEGATIVE); URINE BLOOD NEGATIVE (NEGATIVE); URINE COLOR AMBER (YELLOW); URINE GLUCOSE (UA) NEG (Normal); URINE KETONE NEGATIVE (NEGATIVE); URINE LEUKOCYTE ESTERASE NEG Leu/uL (Negative); URINE PROTEIN NEGATIVE (NEGATIVE); WBC URINE 1 /hpf (0-5)
--- NOTE | 2016-09-19 23:52 | ED PDOC ---
HPI: Male Pain Time Seen by Provider: 09/19/16 19:39 Chief Complaint (Nursing): Male Genitourinary History Per: Patient Onset/Duration Of Symptoms: Days (4) Severity: Mild Pain Scale Rating Of: 2 Quality Of Discomfort: Dull Associated Symptoms: Urinary Symptoms. denies: Fever, Chills, Nausea, Vomiting , Diarrhea, Loss Of Appetite, Back Pain, Chest Pain, Constipation Alleviating Factors: None Additional History Per: Patient Additional Complaint(s): Pt co dysuria and left flank pain for 4 days. NO fever. Reports it is the same pain he was admitted for last week. Pt was recently admitted for UTI and discharge on macrobid. Past Medical History Reviewed: Historical Data, Nursing Documentation, Vital Signs Vital Signs: Last Vital Signs Temp 98.1 F 09/19/16 19:30 Pulse 94 H 09/19/16 19:30 Resp 17 09/19/16 19:30 BP 139/103 H 09/19/16 19:30 Pulse Ox 97 09/19/16 19:30 - Medical History PMH: Asthma, Benign Prostatic Hyperplasia, HTN Denies: HIV - Surgical History Surgical History: No Surg Hx - Family History Family History: States: Unknown Family Hx - Immunization History Hx Tetanus Toxoid Vaccination: No Hx Influenza Vaccination: No Hx Pneumococcal Vaccination: No - Home Medications Home Medications: Ambulatory Orders Medication Instructions Recorded Ciprofloxacin [Cipro] 1 tab PO BID #10 tab 08/07/16 Doxazosin [Cardura] 2 mg PO DAILY 08/07/16 Phenazopyridine [Pyridium] 1 tab PO Q8 08/07/16 Ramipril [Altace] 5 mg PO DAILY 08/07/16 Tamsulosin [Flomax] 0.4 mg PO DAILY #14 cap 08/10/16 Nitrofurantoin Monohyd/M-Cryst 100 mg PO BID 09/12/16 [Nitrofurantoin Monohydrate/Macrocrystals] Bethanechol [Urecholine] 10 mg PO QID #120 tab 09/17/16 Finasteride [Proscar] 5 mg PO DAILY #30 tab 09/17/16 Phenazopyridine [Pyridium] 100 mg PO TID #90 tab 09/17/16 Ciprofloxacin HCl [Cipro] 500 mg PO BID #14 tab 09/19/16 - Allergies Allergies/Adverse Reactions: Allergies Allergy/AdvReac Type Severity Reaction Status Date / Time No Known Allergies Allergy Verified 09/20/16 05:00 Review of Systems ROS Statement: Except As Marked, All Systems Reviewed And Found Negative Constitutional: Negative for: Fever Physical Exam - Reviewed Nursing Documentation Reviewed: Yes Vital Signs Reviewed: Yes - Physical Exam Appears: Positive for: Well, Non-toxic, No Acute Distress Head Exam: Positive for: ATRAUMATIC, NORMAL INSPECTION Skin: Positive for: Warm, Dry Eye Exam: Positive for: EOMI Cardiovascular/Chest: Positive for: Regular Rate, Rhythm. Negative for: Tachycardia Respiratory: Positive for: Normal Breath Sounds. Negative for: Rales, Rhonchi, Wheezing Gastrointestinal/Abdominal: Positive for: Soft. Negative for: Tenderness Back: Negative for: L CVA Tenderness, R CVA Tenderness Extremity: Positive for: Normal ROM Neurologic/Psych: Positive for: Alert, Oriented - Laboratory Results Result Diagrams: 09/19/16 20:10 09/19/16 20:10 - ECG O2 Sat by Pulse Oximetry: 97 Medical Decision Making Medical Decision Making: Impression Dysuria Diff include UTI, MS painm, pyelo NO criteria for pyelonephritis or SIRS at this time. Micro reviewed negative for growth. Will start on cipro and urine cx Referral to Urology Disposition - Clinical Impression Clinical Impression: Urinary tract infection - Patient ED Disposition Is Patient to be Admitted: No Doctor Will See Patient In The: Office Counseled Patient/Family Regarding: Studies Performed, Diagnosis, Need For Followup - Disposition Referrals: Dionisio Wade MD [Medical Doctor] - Marco Wing [Family Provider] - Disposition: Routine/Home Disposition Time: 23:50 Condition: GOOD Additional Instructions: Stop taking macrobid. Start taking cipro. Follow up with your PCP in 2 days. Return for worsening. Prescriptions: Ciprofloxacin HCl [Cipro] 500 mg PO BID #14 tab Instructions: Urinary Tract Infection in Men (ED) Print Language: SWEDISH
== END 2016-09-20 00:01 | disposition home or self-care (01) ==
LOC: H.ER 19:29
DX: N39.0 Urinary tract infection, site not specified (principal); R10.9 Unspecified abdominal pain

== ENCOUNTER 2016-09-24 15:19 | Emergency (ER) | payer MEDICAID ==
[2016-09-24 15:19] VITALS: BMI 44.9
[2016-09-24 15:28] VITALS: PULSE 100; RESP 20; TEMP 98.3; O2SAT 98
--- NOTE | 2016-09-24 15:52 | ED PDOC ---
HPI: Abdomen Time Seen by Provider: 09/24/16 15:32 Chief Complaint (Nursing): Abdominal Pain Chief Complaint (Provider): unable to urinate History Per: Patient Onset/Duration Of Symptoms: Days (3) Location Of Pain/Discomfort: Suprapubic (to LEFT side) Associated Symptoms: Urinary Symptoms (unable to urinate). denies: Fever, Chills, Nausea, Vomiting, Diarrhea Additional Complaint(s): Pt reporting inability to urinate for 3 days Past Medical History Reviewed: Historical Data, Nursing Documentation, Vital Signs Vital Signs: Last Vital Signs Temp 98.3 F 09/24/16 15:25 Pulse 100 H 09/24/16 15:25 Resp 20 09/24/16 15:25 BP Pulse Ox 98 09/24/16 16:08 - Medical History PMH: Asthma, Benign Prostatic Hyperplasia, HTN Denies: HIV - Family History Family History: States: Unknown Family Hx - Immunization History Hx Tetanus Toxoid Vaccination: No Hx Influenza Vaccination: No Hx Pneumococcal Vaccination: No - Home Medications Home Medications: Ambulatory Orders Medication Instructions Recorded Ciprofloxacin [Cipro] 1 tab PO BID #10 tab 08/07/16 Doxazosin [Cardura] 2 mg PO DAILY 08/07/16 Phenazopyridine [Pyridium] 1 tab PO Q8 08/07/16 Ramipril [Altace] 5 mg PO DAILY 08/07/16 Tamsulosin [Flomax] 0.4 mg PO DAILY #14 cap 08/10/16 Nitrofurantoin Monohyd/M-Cryst 100 mg PO BID 09/12/16 [Nitrofurantoin Monohydrate/Macrocrystals] Bethanechol [Urecholine] 10 mg PO QID #120 tab 09/17/16 Finasteride [Proscar] 5 mg PO DAILY #30 tab 09/17/16 Phenazopyridine [Pyridium] 100 mg PO TID #90 tab 09/17/16 Ciprofloxacin HCl [Cipro] 500 mg PO BID #14 tab 09/19/16 Polyethylene Glycol 3350 [Miralax] 17 gm PO DAILY PRN #1 bottle 09/24/16 - Allergies Allergies/Adverse Reactions: Allergies Allergy/AdvReac Type Severity Reaction Status Date / Time No Known Allergies Allergy Verified 09/24/16 15:24 Review of Systems ROS Statement: Except As Marked, All Systems Reviewed And Found Negative Constitutional: Negative for: Fever, Chills Gastrointestinal: Positive for: Abdominal Pain, Constipation. Negative for: Nausea, Vomiting, Diarrhea, Melena, Hematochezia, Hematemesis Genitourinary Male: Negative for: Dysuria, Frequency, Incontinence Musculoskeletal: Positive for: Back Pain Physical Exam - Reviewed Nursing Documentation Reviewed: Yes Vital Signs Reviewed: Yes - Physical Exam Appears: Positive for: Non-toxic, No Acute Distress Head Exam: Positive for: ATRAUMATIC, NORMOCEPHALIC Gastrointestinal/Abdominal: Positive for: Bowel Sounds, Soft. Negative for: Tenderness, Mass, Distended, Guarding Back: Negative for: L CVA Tenderness, R CVA Tenderness - ECG O2 Sat by Pulse Oximetry: 98 Medical Decision Making Medical Decision Making: Pt with multiple visits for same problem and pt would not be found to be in retention. Recent evaluation by urology inpatient and it was determined that his symptoms were due to either radiation cystitis, prostate enlargement, constipation, or a combination of these. He admits to having constipation and not taking medications currently for this. He would have conservative management and be able to follow up as outpatient. Since this evaluation, the patient appears to have no change in symptoms and therefore does not require any further ER/hospital management at this time either. Bladder scan with 113ml of urine. And pt then voided after scan without difficulty. He was given these prescriptions at discharge of his inpatient stay this month, whic he reports he is taking: Bethanechol [Urecholine] 10 mg PO QID #120 tab Finasteride [Proscar] 5 mg PO DAILY #30 tab Phenazopyridine [Pyridium] 100 mg PO TID #90 tab Strongly encouraged to continue outpatient follow up, including clinic and urology. Disposition - Clinical Impression Clinical Impression: Constipation, Incomplete bladder emptying Counseled Patient/Family Regarding: Studies Performed, Diagnosis, Need For Followup, Rx Given - Disposition Referrals: [facility] [Outside] [facility] [Outside] Dionisio Wade MD [Medical Doctor] - Disposition: Routine/Home Disposition Time: 16:05 Condition: GOOD Prescriptions: Polyethylene Glycol 3350 [Miralax] 17 gm PO DAILY PRN #1 bottle PRN Reason: Constipation Instructions: Constipation (ED), Benign Prostatic Hypertrophy (ED) Print Language: FRISIAN
== END 2016-09-24 17:49 | disposition home or self-care (01) ==
LOC: H.ER 15:19
DX: K59.00 Constipation, unspecified (principal); R33.8 Other retention of urine; N40.1 Benign prostatic hyperplasia with lower urinary tract symptoms; J45.909 Unspecified asthma, uncomplicated; I10 Essential (primary) hypertension